=== PATIENT | female | born 1995 | race Caucasian/White ===

== ENCOUNTER 2019-12-24 00:15 | Emergency (ER) | payer SELFPAY ==
[~2019-12-24] VITALS: Ht 157.5 cm; Wt 59.0 kg
[2019-12-24 00:20] VITALS: BP 123/79
[2019-12-24] MEDS ORDERED: HYDROXYZINE HYDROCHLORIDE 25 MG TAB PO STA (01:05)
[2019-12-24 01:39] VITALS: BP 122/82
== END 2019-12-24 01:39 | disposition home or self-care (01) ==
LOC: MED 00:15
DX: F41.9 Anxiety disorder, unspecified (principal)
CPT/HCPCS: 71045; 99283; Q0092